=== PATIENT | female | born 1940 | race Caucasian/White ===

== ENCOUNTER 2016-09-04 21:35 | Inpatient (IN) | payer MEDICARE, OTHER ==
[~2016-09-04] VITALS: Ht 162.6 cm; Wt 95.6 kg
[2016-09-04] MEDS ORDERED: NITROGLYCERIN 2% OINT 1 INCH PKT TOPICAL ONE (23:06)
[2016-09-04] MEDS ORDERED: Furosemide 40 MG/4 ML VIAL ONE (23:06)
[2016-09-04] MEDS ORDERED: AZITHROMYCIN 500 MG VIAL IV ONE (23:06)
[2016-09-04] MEDS ORDERED: CEFTRIAXONE 1 GM VIAL ONE (23:06)
[2016-09-04] MEDS ORDERED: SODIUM CHLORIDE 0.9% 250 ML IV ONE (23:07)
[2016-09-04] MEDS ORDERED: SODIUM CHLORIDE 0.9% 100 ML IV ONE (23:07)
[2016-09-05] VITALS (9 sets, daily range): BP systolic 108–130; RESP 18–20; TEMP 97.7–98.4; Ht 162.6 cm; Wt 95.6 kg
[2016-09-05] MEDS ORDERED: SALINE FLUSH 10 ML FLUSH PRN (01:25)
[2016-09-05] MEDS: NEB-XOPENEX 0.63 MG/3 ML INH SCH ×5 (03:29→22:15)
[2016-09-05] MEDS: SODIUM CHLORIDE 0.9% FLUSH BAG 500 ML IV SCH (05:43)
[2016-09-05] MEDS: CEFTRIAXONE 1 GM in SODIUM CHLORIDE 0.9% 50 ML IV SCH (08:16)
[2016-09-05] MEDS: SALINE FLUSH 10 ML FLUSH SCH ×2 (08:16→21:36)
[2016-09-05] MEDS ORDERED: GABAPENTIN 100 MG CAP PO SCH (09:50)
[2016-09-05] MEDS ORDERED: Furosemide 100 MG/10 ML VIAL IV ONE (09:50)
[2016-09-05] MEDS ORDERED: Losartan 50 MG TAB PO SCH (09:57)
[2016-09-05] MEDS: AZITHROMYCIN 500 MG in SODIUM CHLORIDE 0.9% 250 ML IV SCH (10:30)
[2016-09-05] MEDS: ASPIRIN 81 MG CHEW TAB PO SCH (10:36)
[2016-09-05] MEDS: LEVOTHYROXINE 0.125 MG TAB PO SCH (10:36)
[2016-09-05] MEDS: ALLOPURINOL 300 MG TAB PO SCH (10:36)
[2016-09-05] MEDS: SOD BICARB 650 MG TAB PO SCH ×2 (15:32→21:35)
[2016-09-05] MEDS ORDERED: METOPROLOL XL 50 MG TAB PO SCH (21:00)
[2016-09-05] MEDS: MONTELUKAST 10 MG TAB PO SCH (21:35)
[2016-09-05] MEDS: METOPROLOL XL 25 MG TAB PO SCH (21:35)
[2016-09-06 02:53] VITALS: BP_SYST 119; RESP 20
[2016-09-06] MEDS: SODIUM CHLORIDE 0.9% FLUSH BAG 500 ML IV SCH (05:03)
[2016-09-06] MEDS: LEVOTHYROXINE 0.125 MG TAB PO SCH (06:06)
[2016-09-06] MEDS: NEB-XOPENEX 0.63 MG/3 ML INH SCH ×2 (07:21→15:21)
[2016-09-06 07:45] VITALS: BP_SYST 129; RESP 18; TEMP 97.8
[2016-09-06] MEDS: CEFTRIAXONE 1 GM in SODIUM CHLORIDE 0.9% 50 ML IV SCH (07:59)
[2016-09-06] MEDS: SALINE FLUSH 10 ML FLUSH SCH ×2 (07:59→20:00)
[2016-09-06] MEDS: ASPIRIN 81 MG CHEW TAB PO SCH (09:36)
[2016-09-06] MEDS: SOD BICARB 650 MG TAB PO SCH ×3 (09:36→20:07)
[2016-09-06] MEDS: AZITHROMYCIN 500 MG in SODIUM CHLORIDE 0.9% 250 ML IV SCH (09:36)
[2016-09-06] MEDS: Furosemide 40 MG TAB PO SCH (09:37)
[2016-09-06] MEDS: ALLOPURINOL 300 MG TAB PO SCH (09:38)
[2016-09-06] MEDS ORDERED: EPOETIN 40,000 UNIT VIAL SUBQ ONE (09:40)
[2016-09-06] MEDS ORDERED: SODIUM CHLORIDE 0.9% 1,000 ML IV SCH (10:10)
[2016-09-06] MEDS ORDERED: POLYETHYLENE GLYCOL 17 GM PACKET PO PRN (10:40)
[2016-09-06 11:14] VITALS: BP_SYST 134; RESP 18; TEMP 97.6
[2016-09-06 15:46] VITALS: BP_SYST 138; RESP 18; TEMP 97.5
[2016-09-06 20:01] VITALS: BP_SYST 140; RESP 22; TEMP 97.8
[2016-09-06] MEDS: METOPROLOL XL 25 MG TAB PO SCH (20:06)
[2016-09-06] MEDS: DOCUSATE SOD 100 MG CAP PO SCH (20:06)
[2016-09-06] MEDS: MONTELUKAST 10 MG TAB PO SCH (20:07)
[2016-09-06] MEDS: ACETAMINOPHEN 325 MG TAB PO PRN (23:04)
[2016-09-06 23:34] VITALS: BP_SYST 152; RESP 17; TEMP 97.9
[2016-09-07] VITALS (11 sets, daily range): BP systolic 134–172; RESP 18–24; TEMP 98–98.7
[2016-09-07] MEDS: NEB-XOPENEX 0.63 MG/3 ML INH SCH ×4 (00:34→22:30)
[2016-09-07] MEDS: SODIUM CHLORIDE 0.9% FLUSH BAG 500 ML IV SCH ×2 (05:57→06:25)
[2016-09-07] MEDS: LEVOTHYROXINE 0.125 MG TAB PO SCH (06:20)
[2016-09-07] MEDS: CEFTRIAXONE 1 GM in SODIUM CHLORIDE 0.9% 50 ML IV SCH (09:25)
[2016-09-07] MEDS: SALINE FLUSH 10 ML FLUSH SCH ×2 (09:25→20:18)
[2016-09-07] MEDS: ASPIRIN 81 MG CHEW TAB PO SCH (09:25)
[2016-09-07] MEDS: ALLOPURINOL 300 MG TAB PO SCH (09:25)
[2016-09-07] MEDS: Furosemide 40 MG TAB PO SCH (09:25)
[2016-09-07] MEDS: SOD BICARB 650 MG TAB PO SCH ×3 (09:25→20:19)
[2016-09-07] MEDS: AZITHROMYCIN 500 MG in SODIUM CHLORIDE 0.9% 250 ML IV SCH (10:34)
[2016-09-07] MEDS ORDERED: Furosemide 40 MG/4 ML VIAL IV ONE (11:05)
[2016-09-07] MEDS: ACETAMINOPHEN 325 MG TAB PO PRN ×2 (16:17→23:49)
[2016-09-07] MEDS: DOCUSATE SOD 100 MG CAP PO SCH (20:18)
[2016-09-07] MEDS: MONTELUKAST 10 MG TAB PO SCH (20:18)
[2016-09-07] MEDS: METOPROLOL XL 25 MG TAB PO SCH (20:18)
[2016-09-08] VITALS (9 sets, daily range): BP systolic 163–184; RESP 18–20; TEMP 97.4–98.8
[2016-09-08] MEDS: LEVOTHYROXINE 0.125 MG TAB PO SCH (06:06)
[2016-09-08] MEDS: SODIUM CHLORIDE 0.9% FLUSH BAG 500 ML IV SCH (06:06)
[2016-09-08] MEDS: NEB-XOPENEX 0.63 MG/3 ML INH SCH ×3 (06:26→23:00)
[2016-09-08] MEDS: SOD BICARB 650 MG TAB PO SCH (09:11)
[2016-09-08] MEDS: SALINE FLUSH 10 ML FLUSH SCH ×2 (09:11→20:56)
[2016-09-08] MEDS: CEFTRIAXONE 1 GM in SODIUM CHLORIDE 0.9% 50 ML IV SCH (09:11)
[2016-09-08] MEDS: ASPIRIN 81 MG CHEW TAB PO SCH (09:11)
[2016-09-08] MEDS: ALLOPURINOL 300 MG TAB PO SCH (09:12)
[2016-09-08] MEDS: Furosemide 40 MG TAB PO SCH (09:12)
[2016-09-08] MEDS ORDERED: Losartan 50 MG TAB PO ONE (09:45)
[2016-09-08] MEDS: amLODIPine 5 MG TAB PO SCH ×2 (10:37→20:57)
[2016-09-08] MEDS ORDERED: MISSING DOSE XX ONE (20:40)
[2016-09-08] MEDS: METOPROLOL XL 25 MG TAB PO SCH (20:56)
[2016-09-08] MEDS: DOCUSATE SOD 100 MG CAP PO SCH (20:57)
[2016-09-08] MEDS: MONTELUKAST 10 MG TAB PO SCH (20:57)
[2016-09-08] MEDS ORDERED: LORAZEPAM 0.5 MG TAB PO SCH (22:05)
[2016-09-09] VITALS (7 sets, daily range): BP systolic 160–173; RESP 19–20; TEMP 97.8–98.3
[2016-09-09] MEDS: NEB-XOPENEX 0.63 MG/3 ML INH SCH ×3 (06:30→22:19)
[2016-09-09] MEDS: LEVOTHYROXINE 0.125 MG TAB PO SCH (06:34)
[2016-09-09] MEDS: SODIUM CHLORIDE 0.9% FLUSH BAG 500 ML IV SCH (06:35)
[2016-09-09] MEDS: ASPIRIN 81 MG CHEW TAB PO SCH (08:52)
[2016-09-09] MEDS: Losartan 50 MG TAB PO SCH (08:52)
[2016-09-09] MEDS: ALLOPURINOL 300 MG TAB PO SCH (08:53)
[2016-09-09] MEDS: amLODIPine 5 MG TAB PO SCH ×2 (08:53→20:39)
[2016-09-09] MEDS: SALINE FLUSH 10 ML FLUSH SCH ×2 (08:55→20:40)
[2016-09-09] MEDS: CEFTRIAXONE 1 GM in SODIUM CHLORIDE 0.9% 50 ML IV SCH (08:56)
[2016-09-09] MEDS ORDERED: Furosemide 40 MG TAB PO SCH (09:00)
[2016-09-09] MEDS: Furosemide 100 MG/10 ML VIAL IV ONE ×2 (13:02→13:27)
[2016-09-09] MEDS ORDERED: LORAZEPAM 0.5 MG TAB PO PRN (14:40)
[2016-09-09] MEDS ORDERED: ZOLPIDEM 5 MG TAB PO PRN (14:40)
[2016-09-09] MEDS: METOPROLOL XL 25 MG TAB PO SCH (20:39)
[2016-09-09] MEDS: POLYETHYLENE GLYCOL 17 GM PACKET PO SCH (20:39)
[2016-09-09] MEDS: MONTELUKAST 10 MG TAB PO SCH (20:39)
[2016-09-09] MEDS: DOCUSATE SOD 100 MG CAP PO SCH (20:39)
[2016-09-09] MEDS: ACETAMINOPHEN 325 MG TAB PO PRN (21:17)
[2016-09-10] VITALS (12 sets, daily range): BP systolic 151–179; RESP 16–20; TEMP 97.5–98.5
[2016-09-10] MEDS: LEVOTHYROXINE 0.125 MG TAB PO SCH (06:19)
[2016-09-10] MEDS: SODIUM CHLORIDE 0.9% FLUSH BAG 500 ML IV SCH (06:20)
[2016-09-10] MEDS: NEB-XOPENEX 0.63 MG/3 ML INH SCH ×3 (06:36→23:03)
[2016-09-10] MEDS: CEFTRIAXONE 1 GM in SODIUM CHLORIDE 0.9% 50 ML IV SCH (08:05)
[2016-09-10] MEDS: SALINE FLUSH 10 ML FLUSH SCH ×2 (08:05→19:45)
[2016-09-10] MEDS: ASPIRIN 81 MG CHEW TAB PO SCH (08:06)
[2016-09-10] MEDS: Losartan 50 MG TAB PO SCH (08:06)
[2016-09-10] MEDS: Furosemide 80 MG TAB PO SCH (08:06)
[2016-09-10] MEDS: amLODIPine 5 MG TAB PO SCH ×2 (08:06→21:38)
[2016-09-10] MEDS: ALLOPURINOL 300 MG TAB PO SCH (08:06)
[2016-09-10] MEDS: ACETAMINOPHEN 325 MG TAB PO PRN (19:47)
[2016-09-10] MEDS: POLYETHYLENE GLYCOL 17 GM PACKET PO SCH (21:00)
[2016-09-10] MEDS: DOCUSATE SOD 100 MG CAP PO SCH (21:00)
[2016-09-10] MEDS: MONTELUKAST 10 MG TAB PO SCH (21:38)
[2016-09-10] MEDS: METOPROLOL XL 25 MG TAB PO SCH (21:38)
[2016-09-11 03:13] VITALS: BP_SYST 162; RESP 22; TEMP 98.3
[2016-09-11] MEDS: LEVOTHYROXINE 0.125 MG TAB PO SCH (06:08)
[2016-09-11] MEDS: SODIUM CHLORIDE 0.9% FLUSH BAG 500 ML IV SCH (06:09)
[2016-09-11] MEDS: NEB-XOPENEX 0.63 MG/3 ML INH SCH (06:13)
[2016-09-11 08:01] VITALS: BP_SYST 159; RESP 22; TEMP 98
[2016-09-11] MEDS: Losartan 50 MG TAB PO SCH (08:59)
[2016-09-11] MEDS: ASPIRIN 81 MG CHEW TAB PO SCH (08:59)
[2016-09-11] MEDS: Furosemide 80 MG TAB PO SCH (08:59)
[2016-09-11] MEDS: amLODIPine 5 MG TAB PO SCH (08:59)
[2016-09-11] MEDS: ALLOPURINOL 300 MG TAB PO SCH (08:59)
[2016-09-11] MEDS: CEFTRIAXONE 1 GM in SODIUM CHLORIDE 0.9% 50 ML IV SCH (09:00)
[2016-09-11] MEDS: SALINE FLUSH 10 ML FLUSH SCH (09:00)
[2016-09-11 11:06] VITALS: BP_SYST 173; RESP 20; TEMP 97.7
[2016-09-11 12:56] VITALS: BP_SYST 173; RESP 20; TEMP 97.7
== END 2016-09-11 12:03 | disposition home or self-care (01) | DRG 291 ==
LOC: ENRESERVTM → ENRESERVDT → ER 21:35 → EMR 09-05 00:10 → ENPENDDIS 09-05 00:10 → 3NT 09-05 01:28
PROVIDERS: ADMIT Internal Medicine; ATTEND Internal Medicine
CPT/HCPCS: 36415; 36600; 71010; 71020; 80048; 80053; 81001; 82040; 82553; 82570; 82607; 82728; 82746; 82784; 82803; 83540; 83605; 83735; 83880; 84100; 84156; 84166; 84439; 84443; 84466; 84484; 84550; 85025; 86335; 87040; 93005; 93306; 94640; 94799; 96365; 96375